=== PATIENT | male | born 1970 | race African-American/Black ===

== ENCOUNTER 2020-07-02 13:39 | Emergency (ER) | payer SELFPAY ==
[~2020-07-02] VITALS: Ht 185.4 cm; Wt 68.0 kg
[2020-07-02 14:47] VITALS: BP 120/62
== END 2020-07-02 14:51 | disposition home or self-care (01) ==
LOC: ER 13:39 → EDBD 13:39 → ER 14:50
DX: R53.1 Weakness (principal); I10 Essential (primary) hypertension
CPT/HCPCS: 71045

== ENCOUNTER 2020-07-08 18:41 | Emergency (ER) | payer SELFPAY ==
[~2020-07-08] VITALS: Ht 175.3 cm; Wt 80.7 kg
[2020-07-08 18:41] VITALS: BP 190/93
== END 2020-07-08 19:26 | disposition left against medical advice (07) ==
LOC: ER 18:43
DX: I10 Essential (primary) hypertension (principal); Z76.0 Encounter for issue of repeat prescription; Z53.21 Procedure and treatment not carried out due to patient leaving prior to being seen by health care provider